=== PATIENT | female | born 1970 | race Two or more races ===

== ENCOUNTER 2023-08-31 12:03 | Emergency (ER) | payer OTHER ==
[~2023-08-31] VITALS: Ht 157.5 cm; Wt 70.5 kg
[2023-08-31] MEDS ORDERED: METF-1211 PO (12:10)
[2023-08-31 12:13] VITALS: BP 108/57; PULSE 78; RESP 18; TEMP 97.9
[2023-08-31] MEDS ORDERED: ACET-2080 PO (14:26)
[2023-08-31] MEDS ORDERED: IBUP-1554 PO (14:26)
[2023-08-31] MEDS: ACETAMINOPHEN/CODEINE 300-30 MG TABLET PO ONE (14:44)
[2023-08-31] MEDS: IBUPROFEN 600 MG TABLET PO ONE (14:44)
== END 2023-08-31 14:52 | disposition home or self-care (01) ==
LOC: EMS 12:05
DX: S52.515A Nondisplaced fracture of left radial styloid process, initial encounter for closed fracture (principal); S52.532A Colles' fracture of left radius, initial encounter for closed fracture; W19.XXXA Unspecified fall, initial encounter; Y93.89 Activity, other specified; Y92.89 Other specified places as the place of occurrence of the external cause; Y99.8 Other external cause status; E11.9 Type 2 diabetes mellitus without complications
CPT/HCPCS: 99284; 73110-TC; 73130-TC; Z7502; Z7610